=== PATIENT | male | born 1980 | race Two or more races ===

== ENCOUNTER 2023-03-04 16:40 | Emergency (ER) | payer OTHER ==
[~2023-03-04] VITALS: Ht 172.7 cm; Wt 75.0 kg
[2023-03-04 16:52] VITALS: TEMP 98.3
[2023-03-04 17:30] VITALS: BP 149/71; PULSE 67; RESP 17
[2023-03-04] MEDS ORDERED: PERTUSS(ACELL),DIPH,TET VAC/PF 0.5 ML SYRINGE IM. ONE (18:45)
== END 2023-03-04 19:21 | disposition home or self-care (01) ==
LOC: EMS 16:43
DX: S62.614A Displaced fracture of proximal phalanx of right ring finger, initial encounter for closed fracture (principal); S60.121A Contusion of right index finger with damage to nail, initial encounter; X58.XXXA Exposure to other specified factors, initial encounter; Y93.89 Activity, other specified; Y92.89 Other specified places as the place of occurrence of the external cause; Y99.8 Other external cause status
CPT/HCPCS: 11740; 90471; 90715; 99284

== ENCOUNTER 2025-03-16 19:23 | Emergency (ER) | payer OTHER ==
[~2025-03-16] VITALS: Ht 170.2 cm; Wt 69.5 kg
[2025-03-16 19:36] VITALS: TEMP 98.8
[2025-03-16 19:57] LABS: PLATELET COUNT (AUTO) 233 K/uL (150-450); RED BLOOD CELL COUNT(AUTO) 5.06 MIL/uL (4.50-5.90); RED CELL DISTRIBUTION WIDTH 13.4 % (11.5-14.5); WHITE BLOOD COUNT (AUTO) 12.8 K/uL (4.5-11.0)
[2025-03-16 20:06] LABS: CALCIUM, TOTAL 8.8 mg/dL (8.8-10.5); CREATININE 0.84 mg/dL (0.60-1.30); GLOMERULAR FILTR. RATE CALC > 60 mL/min (>60); GLUCOSE,RANDOM 118 mg/dL (70-110); SODIUM SERUM 141 mmol/L (136-145); UREA NITROGEN, BLOOD 18 mg/dL (7-18)
[2025-03-16 20:10] LABS: COVID AG,FIA SOURCE NASAL SWAB
[2025-03-16 20:28] LABS: SARS-COV2 (COVID) ANTIGEN,FIA Negative (Negative)
[2025-03-16 23:00] VITALS: BP 133/64; PULSE 72; RESP 18; O2SAT 99
[2025-03-16] MEDS ORDERED: HYDR25TA83 PO (23:25)
== END 2025-03-17 | disposition home or self-care (01) ==
LOC: EMS 19:23
DX: F41.9 Anxiety disorder, unspecified (principal); F32.A Depression, unspecified; Z88.0 Allergy status to penicillin; Z79.899 Other long term (current) drug therapy; Z20.822 Contact with and (suspected) exposure to COVID-19
CPT/HCPCS: 99284; 87426; 80048; 85025; 36415; 93005; G0480